=== PATIENT | female | born 1985 | race Two or more races ===

== ENCOUNTER → 2023-10-27 10:38 | Outpatient (REF) | payer OTHER, SELFPAY | LOC: OHS 10:38 | PROVIDERS: ATTENDING PHYSICIAN Nurse Practitioner Family | DX: Z23 Encounter for immunization (principal) | CPT/HCPCS: 36415; 86480 ==

== ENCOUNTER → 2023-11-16 11:34 | Outpatient (REF) | payer OTHER, SELFPAY ==
[2023-11-18 07:41] LABS: Quantiferon Mitogen minus NIL 9.93 IU/mL; Quantiferon NIL 0.07 IU/mL; Quantiferon Plus TB1 minus NIL 0.09 IU/mL (<=0.34); Quantiferon Plus TB2 minus NIL 0.14 IU/mL (<=0.34); Quantiferon TB Gold Plus Negative (Negative)
== END ==
LOC: OHS 11:34
PROVIDERS: ATTENDING PHYSICIAN Nurse Practitioner Family
DX: Z23 Encounter for immunization (principal)
CPT/HCPCS: 36415; 86480